=== PATIENT | male | born 1985 | race Hispanic/Latino ===

== ENCOUNTER 2022-02-09 18:37 | Emergency (ER) | payer SELFPAY ==
--- OUTSIDE RECORDS SUMMARY | 2022-02-09 18:40 | XMS REPORT | Continuity of Care Document ---
:[address] [facility] t Address [address] [place] [address] Care Team Providers Name Role Phone PCP, DOES NOT HAVE A Primary Care Physician Unavailable JEISON Attending Clinician Unavailable Jeison HUNT Attending Clinician Nuria Lindsay Attending Clinician Unavailable RAUL KITCHEN Attending Clinician Unavailable Juan Antonio SMITH Attending Clinician Physician, Primary or Family Admitting Clinician Unavailcalista MCHUGH Admitting Clinician Unavailable Payers Payer Name Policy Type Policy Number Effective Date Expiration Date S ource Problems Condition Condition Condition Status Onset Resolution Last Treating Co mments Source Name Details Category Date Date Treatment Clinician Date No known No known Disease NPI:1 83 active active [id number] problems problems Allergies, Adverse Reactions, Alerts Allergy Allergy Status Severity Reaction(s) Onset Inactive Treating Comm ents Source Name Type Date Date Clinician No Known DA Active U 2020-0 [facility] 00:[facility]: d 00 [facility] No Known DA Active U 2020-0 [facility] No Known DA Active U 2020-0 [facility] 3[facility] 00:[facility]: d 00 [facility] No Known DA Active U 2020-0 [facility] 3[facility]13 [place] 00:00: d 00 [facility] No Known DA Active U 2019-0 [facility] 2[facility]03 [facility] 00:[facility]: d 00 [facility] No Known DA Active U 2019-0 [facility]ie 2-03 [place] [facility] 00:00: d 00 [facility] No Known DA Active U 2016- [facility]ie 5-02 [place] [facility] 00:00: d 00 [facility] No Known DA Active U 2017-0 [facility]ie 5-02 [place] [facility] 00:00: d 00 [facility] No Known DA Active U 2017-0 [facility] 1-14 [place] [facility] 00:00: d 00 [facility] No Known DA Active U 2016-0 [facility]ie 1-14 [place] [facility] 00:00: d 00 [facility] NO KNOWN Drug Active NPI:183 ALLERGIE Class [id number] S Social History Social Habit Start Date Stop Date Quantity Comments Source Exposure to Not sure NPI:[id number] SARS-CoV-2 (event) Sex [birth year] At [birth year] NPI:[id number] 00:00:00 00:00:00 Smoking Status Start Date Stop Date Source Unknown if ever smoked NPI:[id number] Medications Ordered Filled Start Stop Current Ordering Indication Dosage Frequency Signature Comments Components Source Medication Medication Date Date Medication? Clinician (SIG) Name Name ketorolac 2020-10 30mg 30 mg, NPI:1 83 (TORADOL) 10-20 Slow IV [id number] 1 injection 21:30: 20:32 Push, 30 mg 00 :00 ONCE, 1 dose, On Wed08/20/21 at 1530, Routine
prepared foods service team member approving Restricted medication : KASSY MCHUGH diclofenac 2020-10 Yes [id number] 75mg Take 1 NPI:183 75 mg EC 1-17 tablet by [id number] 1 tablet 00:00: mouth 2 00 (two) times daily with meals. acetaminoph 2020-10 Yes [id number] 650mg Take 1 NPI:183 en (TYLENOL 1-17 tablet by [id number] ARTHRITIS 00:00: mouth PAIN) 650 00 every 8 mg CR (eight) tablet hours as needed for Pain. metaxalone 2020-10 Yes [id number] 800mg Take 1 NPI:183 (SKELAXIN) 10-20 tablet by [id number] 800 mg 00:00: mouth 3 tablet 00 (three) times daily. aspirin 325mg 325 mg, NPI:1 83 tablet 325 10-14 Oral, [id number] mg 18:30: 19:12 ONCE, 1 00 :00 dose, 10/14/20 at 1230, STAT No known No NPI:183 medications [id number] Vital Signs Vital Name Observation Time Observation Value Comments Source Systolic blood pressure 2021-08-20 22:48:53 136 mm[Hg] Diastolic blood 2021-08-20 22:48:53 74 mm[Hg] NPI:1 [id number] pressure Heart rate 2021-08-20 22:48:53 80 /min NPI:[id number] Body temperature 2021-08-20 22:48:53 36.94 Karolina Respiratory rate 2021-08-20 22:48:53 17 /min Oxygen saturation in 2021-08-20 22:48:53 100 /min Arterial blood by Pulse oximetry Body height 2021-08-20 19:43:57 177.8 cm NPI:183 [id number] Body weight 2021-08-20 19:43:57 89.359 kg NPI:183 [id number] BMI 2021-08-20 19:43:57 28.27 kg/m2 NPI:183 [id number] Systolic blood pressure 2020-10-14 19:14:31 117 mm[Hg] Diastolic blood 2020-10-14 19:14:31 60 mm[Hg] NPI:1 [id number] pressure Heart rate 2020-10-14 19:14:31 102 /min NPI:1831 [id number] Body temperature 2020-10-14 19:14:31 36.5 Karolina Respiratory rate 2020-10-14 19:14:31 17 /min Oxygen saturation in 2020-10-14 19:14:31 100 /min Arterial blood by Pulse oximetry Body weight 2020-10-14 17:20:00 104.327 kg NPI:1831 [id number] Procedures Procedure Date / Time Performed Performing Clinician Sourc e URINALYSIS 2021-08-20 20:42:00 Kassy Mchugh NPI:[id number] XR CHEST 2 VW 2021-08-20 20:35:49 Kassy Mchugh NPI:[id number] TROPONIN I 2021-08-20 20:35:00 Kassy Mchugh NPI:[id number] COMP. METABOLIC PANEL 2021-08-20 20:35:00 Kassy Mchugh NPI:1 [id number] ([id number]) CBC WITH DIFF 2021-08-20 20:35:00 Kassy Mchugh NPI:[id number] XR CHEST 1 VW 2020-10-14 18:45:09 J Carlos Romano NPI:[id number] TROPONIN I 2020-10-14 18:01:00 J Carlos Romano NPI:[id number] BASIC METABOLIC PANEL (NA, 2020-10-14 18:01:00 J Carlos Romano PI:[id number] K, CL, CO2, GLUCOSE, BUN, CREATININE, CA) GALV/CLC ONLY - URINE DRUG 2020-10-14 18:01:00 J Carlos Romano PI:[id number] (IMMUNOASSAY) - 4 ER PANEL CBC WITH DIFF 2020-10-14 18:01:00 J Carlos Romano NPI:[id number] Encounters Start End Encounter Admission Attending Care Care Encounter Source Date/Time Date/Time Type Type Clinicians Facility Department ID 2021-11-04 Outpatient IBNS IBNS [id number] 14:25:01 [id number] Aristides 2020-12-27 Inpatient [facility]NA [id number] [facility] 18:55:00 [id number] [facility] 2020-01-29 Inpatient [facility] [id number] [facility] 14:54:00 [id number] [facility] 2020-01-01 Inpatient [facility] [id number] [facility] 19:07:00 [facility] 2019-12-15 Inpatient [facility] [id number] [facility] 09:05:00 [id number] [facility] 2019-11-06 Inpatient [facility] [id number] [facility] 19:20:00 [facility] 2021-08-20 2021-08-20 Emergency X JEISON, [facility] ERT [id number] NPI:183 13:54:00 17:08:00 KASSY [id number] 1 2021-08-20 [facility]08-[id number] NPI:183 13:54:00 17:08:00 [facility] [id number] [place] 4.2.7.2.[address] [facility] [phone] [address] ([facility]) 2021-06-04 2021-06-04 Emergency EM Lindsay, [facility] [id number] [facility] 21:27:00 22:14:00 Yvon [id number] [facility] 2021-02-10 2021-02-10 Emergency E KITCHEN, [facility] MHSW [id number] MHSW 00:55:00 03:24:00 ALETHEA 2020-10-14 2020-10-14 Emergency Romano, [facility] [id number] NPI:183 11:08:00 13:45:00 [facility] [id number] Clear 4.2.7.2.686 [place] [phone] [place] [address] ([facility]) 2020-10-14 2020-10-14 Emergency X [facility] ERT [id number] NPI:183 11:08:00 11:08:00 [id number] 1 Results Test Description Test Time Test Comments Results Result Comments Source TROPONIN I 2021-08-20 21:05:54 Test Item Value Reference Range Interpretation Comme nts TROPONIN I (test code = 0.004 ng/mL See_Comment [Au tomated message] The 4602318790) system which ge nerated this result tra nsmitted reference range : <=0.034. The reference r cooper was not used to int erpret this result as normal/abnormal . KEN (test code = KEN) Reference (Normal) Range (defined by the 99th percentile reference limit): <= 0.034 ng/mL Note: Cardiac troponin begins to rise 3-4 hours after the onset of ischemia. Repeat in 4-6 hours if the sample was drawn within 3-4 hours of the onset of the symptom and found normal. Diagnosis of myocardial injury is made with acute changes in cTn concentrations with at least one serial sample above the 99th percentile upper reference limit (URL), taken together with the patient's clinical presentation. Biotin has been reported to cause a negative bias, interpret results relative to patient's use of biotin. Lab Interpretation Normal (test code = 40381-3) NPI:[id number]. METABOLIC PANEL (83358)2021-08-20 20:54:32 Test Item Value Reference Range Interpretation Comments NA (test code = 138 mmol/L 135-145 8299501433) K (test code = 4.3 mmol/L 3.5-5.0 9256370168) CL (test code = 103 mmol/L 98-108 0324846825) CO2 TOTAL (test code = 27 mmol/L 23-31 7873460535) AGAP (test code = 2-16 4760883694) BUN (test code = 10 mg/dL 7-23 1531729425) GLUCOSE (test code = 111 mg/dL 70-110 H 9856768144) CREATININE (test code = 0.75 mg/dL 0.60-1.25 1788434710) TOTAL BILI (test code = 1.1 mg/dL 0.1-1.2 1417999403) CALCIUM (test code = 9.5 mg/dL 8.6-10.6 4307708829) T PROTEIN (test code = 7.6 g/dL 6.3-8.2 6576348260) ALBUMIN (test code = 4.6 g/dL 3.5-5.0 8380065233) ALK PHOS (test code = 106 U/L 34-122 7268575725) ALTv (test code = 41 U/L 5-50 1742-6) AST(SGOT) (test code = 37 U/L 13-40 7000665517) eGFR (test code = mL/min/1.73m2 2692829361) KEN (test code = KEN) Association of Glomerular Filtration Rate (GFR) and Staging of Kidney Disease* + --+ --+ ------+| GFR (mL/min/1.73 m2) ?| With Kidney Damage ?| ?Without Kidney Damage+ --------+ --------+ +| ?>90 ?| ?Stage one ?| ? Normal ?+ ---+ ---+ -------+| ?60-89 ?| ?Stage two ?| ? Decreased GFR ? + --+ --+ ------+| ?30-59 ?| ?Stage three ?| ? Stage three ? + --+ --+ ------+| ?15-29 ?| ?Stage four ? | ? Stage four ?+ ---+ ---+ -------+| ?<15 (or dialysis) ? ?| ?Stage five ? | ? Stage five ?+ ---+ ---+ -------+ *Each stage assumes the associated GFR level has been in effect for at least three months. ?Stages 1 to 5, with or without kidney disease, indicate chronic kidney disease. Notes: Determination of stages one and two (with eGFR >59mL/min/1.73 m2) requires estimation of kidney damage for at least three months as defined by structural or functional abnormalities of the kidney, manifested by either:Pathological abnormalities or Markers of kidney damage (including abnormalities in the composition of the blood or urine or abnormalities in imaging tests). Lab Interpretation Abnormal (test code = 71283-8) NPI:[id number] WITH [id number] 20:41:06 Test Item Value Reference Range Interpretation Comments WBC (test code = See_Comment [Automated 4032-2) message] The sy stem which generated this result transmitted reference range : 4.20 - 10.70 10*3/?L. The reference range was not used to interpret this result as normal/abnormal . RBC (test code = See_Comment H [Automated 035-8) message] The sy stem which generated this result transmitted reference range : 4.26 - 5.52 10*6/?L. The reference range was not used to interpret this result as normal/abnormal . HGB (test code = 16.0 g/dL 12.2-16.4 718-7) HCT (test code = 48.0 % 38.4-49.3 4544-3) MCV (test code = 85.4 fL 81.7-95.6 787-2) MCH (test code = 28.5 pg 26.1-32.7 785-6) MCHC (test code = 33.3 g/dL 31.2-35.0 786-4) RDW-SD (test code = 41.3 fL 38.5-51.6 68204-7) RDW-CV (test code = 13.3 % 12.1-15.4 788-0) PLT (test code = See_Comment [Automated 777-3) message] The sy stem which generated this result transmitted reference range : 150 - 328 10*3/ ?L. The reference r cooper was not used to interpret this result as normal/abnormal . MPV (test code = 9.0 fL 9.8-13.0 L 47589-6) NRBC/100 WBC (test See_Comment [Automat ed code = 6313540004) message] The system which generated this result transmitted reference range : 0.0 - 10.0 /100 WBCs. The refer ence range was not u sed to interpret th is result as normal/abnormal . NRBC x10^3 (test code <0.01 See_Comment [Auto mated = 3455119913) message] The s ystem which generated this result transmitted reference range : 10*3/?L. The reference range was not used to interpret this result as normal/abnormal . GRAN MAT (NEUT) % 77.0 % (test code = 770-8) IMM GRAN % (test code 0.70 % = 9815731800) LYMPH % (test code = 16.3 % 736-9) MONO % (test code = 5.2 % 5905-5) EOS % (test code = 0.2 % 713-8) BASO % (test code = 0.6 % 706-2) GRAN MAT x10^3(ANC) 7.36 10*3/uL 1.99-6.95 H (test code = 5391714940) IMM GRAN x10^3 (test 0.07 10*3/uL 0.00-0.06 H code = 0998685652) LYMPH x10^3 (test code 1.56 10*3/uL 1.09-3.23 = 731-0) MONO x10^3 (test code 0.50 10*3/uL 0.36-1.02 = 742-7) EOS x10^3 (test code = <0.03 0.06-0.53 L 711-2) BASO x10^3 (test code 0.06 10*3/uL 0.01-0.09 = 704-7) Lab Interpretation Abnormal (test code = 44243-6) NPI:[id number] BEDSIDE [id number] 19:53:00 Test Item Value Reference Range Interpretation Comments GLUCOSE BEDSIDE TESTING (test code = 99 mg/dL 70-110 N GLUBED) Chest 1 [id number] 19:02:30CHEST PORTABLE ONE VIEW HISTORY:Shortness of breath TECHNIQUE: Frontal, portable projection of the chest is obtained. FINDINGS: The lungs are clear. The heart size and mediastinal silhouetteare normal.No pleural effusion or pneumothorax is seen. CONCLUSIONS: No acute cardiopulmonary disease. [facility], Radiant Results Inft User - 10/14/2020 1:03 PM CSTCHEST PORTABLE ONE VIEWHISTORY:Shortness of breathTECHNIQUE: Frontal, portable projection of the chest is obtained.FINDINGS: The lungs are clear. The heart size and mediastinal silhouetteare normal. No pleural effusion or pneumothorax is seen.CONCLUSIONS: No acute cardiopulmonary disease. NPI:[id number] [id number] 18:42:00 Test Item Value Reference Range Interpretation Comments TROPONIN I (test 0.003 ng/mL See_Comment [Automated code = 5554809128) message] The system which generated this result transmitted reference range : <=0.034. The reference range was not used to interpret this result as normal/abnormal . KEN (test code = Equal or Less than KEN) 0.034 ng/ml---Normal ?Note: Cardiac troponin begins to rise 3-4 hours after the onset of ischemia. Repeat in 4-6 hours if the sample was drawn within 3-4 hours of the onset of the symptom and found normal. Between 0.035 and 0.120 ng/mL--- Borderline. Questionable myocardial injury or necrosis ? ?Note: Serial measurement may be necessary to confirm or exclude the diagnosis of myocardial injury or necrosis; Clinical correlation (symptoms, EKGs, imaging studies, and others) required; Repeat in 4-6 hours if clinically indicated. ? Equal or Higher than 0.121 ng/mL---Abnormal. Myocardial Injury or Necrosis Likely ? Biotin has been reported to cause a negative bias, interpret results relative to patient's use of biotin. ? Lab Interpretation Normal (test code = 93809-0) NPI:[id number] SCREEN ER (URINE)2020-10-14 18:38:00 Test Item Value Reference Range Interpretation Comments AMPHET (test code = Negative Negative 9891562447) Cocaine Metabolite (test Presumptive Positive Negative A code = 9970135476) OPIATES (test code = Negative Negative 1944678144) THC (test code = Negative Negative 8245599485) KEN (test code = KEN) Urine Drug Cutoff Ranges Amphetamine: ? 1,000 ng/mLCocaine: ? 150 ng/mLOpiates: ? 300 ng/mLCannabinoids: ?50 ng/mL The results are to be used only for medical (i.e., treatment) purposes. Unconfirmed screening results must not be used for non-medical purposes (e.g., employment testing, legal testing). Lab Interpretation (test Abnormal code = 99945-0) NPI:[id number] Metabolic Panel (NA, K, CL, CO2, GLUCOSE, BUN, CREATININE, CA)2020-10-14 18:31:00 Test Item Value Reference Range Interpretation Comments NA (test code = 140 mmol/L 135-145 5538592678) K (test code = 4.7 mmol/L 3.5-5 3916609694) CL (test code = 106 mmol/L 98-108 7800757823) CO2 TOTAL (test code = 23 mmol/L 23-31 7030047673) AGAP (test code = 2-16 2600873404) BUN (test code = 10 mg/dL 7-23 6754012845) GLUCOSE (test code = 117 mg/dL 70-110 H 3036873996) CREATININE (test code = 0.78 mg/dL 0.6-1.25 7875357128) CALCIUM (test code = 9.8 mg/dL 8.6-10.6 9796509580) eGFR Calculation mL/min/1.73m2 (Non-) (test code = 0225599432) eGFR Calculation mL/min/1.73m2 () (test code = 8780670113) KEN (test code = KEN) Association of Glomerular Filtration Rate (GFR) and Staging of Kidney Disease* + --+ --+ ------+| GFR (mL/min/1.73 m2) ?| With Kidney Damage ?| ?Without Kidney Damage+ --------+ --------+ +| ?>90 ?| ?Stage one ?| ? Normal ?+ ---+ ---+ -------+| ?60-89 ?| ?Stage two ?| ? Decreased GFR ? + --+ --+ ------+| ?30-59 ?| ?Stage three ?| ? Stage three ? + --+ --+ ------+| ?15-29 ?| ?Stage four ? | ? Stage four ?+ ---+ ---+ -------+| ?<15 (or dialysis) ? ?| ?Stage five ? | ? Stage five ?+ ---+ ---+ -------+ *Each stage assumes the associated GFR level has been in effect for at least three months. ?Stages 1 to 5, with or without kidney disease, indicate chronic kidney disease. Notes: Determination of stages one and two (with eGFR >59mL/min/1.73 m2) requires estimation of kidney damage for at least three months as defined by structural or functional abnormalities of the kidney, manifested by either:Pathological abnormalities or Markers of kidney damage (including abnormalities in the composition of the blood or urine or abnormalities in imaging tests). Lab Interpretation Abnormal (test code = 50452-7) NPI:[id number] with [id number] 18:08:00 Test Item Value Reference Range Interpretation Comments WBC (test code = See_Comment [Automated 4690-2) message] The sy stem which generated this result transmitted reference range : 4.20 - 10.70 10*3/?L. The reference range was not used to interpret this result as normal/abnormal . RBC (test code = See_Comment H [Automated 789-8) message] The sy stem which generated this result transmitted reference range : 4.26 - 5.52 10*6/?L. The reference range was not used to interpret this result as normal/abnormal . HGB (test code = 16.6 g/dL 12.2-16.4 H 718-7) HCT (test code = 49.2 % 38.4-49.3 4544-3) MCV (test code = 87.9 fL 81.7-95.6 787-2) MCH (test code = 29.6 pg 26.1-32.7 785-6) MCHC (test code = 33.7 g/dL 31.2-35 786-4) RDW-SD (test code = 43.8 fL 38.5-51.6 57738-0) RDW-CV (test code = 13.6 % 12.1-15.4 788-0) PLT (test code = See_Comment [Automated 777-3) message] The sy stem which generated this result transmitted reference range : 150 - 328 10*3/ ?L. The reference r cooper was not used to interpret this result as normal/abnormal . MPV (test code = 9.3 fL 9.8-13 L 65404-8) NRBC/100 WBC (test See_Comment [Automat ed code = 4257080797) message] The system which generated this result transmitted reference range : 0.0 - 10.0 /100 WBCs. The refer ence range was not u sed to interpret th is result as normal/abnormal . NRBC x10^3 (test code <0.01 See_Comment [Auto mated = 0657503555) message] The s ystem which generated this result transmitted reference range : 10*3/?L. The reference range was not used to interpret this result as normal/abnormal . GRAN MAT (NEUT) % 75.1 % (test code = 770-8) IMM GRAN % (test code 1.40 % = 9830660940) LYMPH % (test code = 15.4 % 736-9) MONO % (test code = 6.6 % 5905-5) EOS % (test code = 0.7 % 713-8) BASO % (test code = 0.8 % 706-2) GRAN MAT x10^3(ANC) 5.32 10*3/uL 1.99-6.95 (test code = 5044059822) IMM GRAN x10^3 (test 0.10 10*3/uL 0-0.06 H code = 9978251030) LYMPH x10^3 (test code 1.09 10*3/uL 1.09-3.23 = 731-0) MONO x10^3 (test code 0.47 10*3/uL 0.36-1.02 = 742-7) EOS x10^3 (test code = 0.05 10*3/uL 0.06-0.53 L 711-2) BASO x10^3 (test code 0.06 10*3/uL 0.01-0.09 = 704-7) Lab Interpretation Abnormal (test code = 52922-2) - CTA CHEST FOR [id number] 16:36:00 Name: ИВАН DEVLIN [facility] : 1985 Age/S: 34 / M [address] [place] Unit #: [id number] Loc: [place] [address] Phys: Yvon Lindsay MD Acct: [id number] Dis Date: Status: REG ER PHONE #: [phone] Exam Date: 01/29/2020 7476 FAX #: Reason: SOB/palp itations elevated D-Dimer EXAMS: CPT: [id number] [place] [address] Site ID: [id number] CT angiogram of the chest with pulmonary embolism protocol CLINICAL HISTORY: Shortness of breath/palpitations, elevated d-dimer COMPARISON STUDY: Chest x- ray of the same day TECHNIQUE: CT angiogram of the chest with IV contrast performed according to department pulmonary embolus protocol. Radiologist performed post-acquisition 3D processing was done at the workstation and reviewed. CT dose lowering technique utilized, with adjustment of MA/kV according to patient size and automated exposure control. FINDINGS: There is no evidence of pulmonary embolism. The thyroid gland and thoracic inlet are normal. The mediastinum is unremarkable, with no suspicious mass. The heart size is normal. The thoracic aorta and great vessels arenormal in caliber. No pleural or pericardial effusion. No axillary, mediastinal or hilar lymphadenopathy. The tracheobronchial tree is clear. No pulmonary nodules, mass or consolidation. Bone windows demonstrate no evidence of fracture or malalignment. Limited images of the upper abdomen appear normal. IMPRE SSION: No evidence of acute pulmonary embolus or acute abnormality within the chest. PAGE 1 Signed Report (CONTINUED) Name: ИВАН DEVLINland : 1985 Age/S: 34 / M [address] [place] Unit #: [id number] Loc: [place] [address] Phys: Yvon Lindsay MD Acct: [id number] Dis Date: Status: REG ER PHONE #: [phone] Exam Date: 01/29/2020 1633 FAX #: Reason: SOB/palpitations elevated D-Dimer EXAMS: CPT: [id number] [place] [address] <Continued> at 1636 Reported and signed by: Bucky Kitchen M.D. CC: Yvon Lindsay MD; Amrita Parker NP Technologist:RT Chalo(R)(CT) CTDI: DLP: Trnscb Date/Time: 01/29/2020 (163) [email or web address] Orig Print D/T: S: 01/29/2020 (1639) PAGE 2 Signed ReportCOMPREHENSIVE METABOLIC [id number] 15:48:00 Test Item Value Reference Range Interpretation Comments SODIUM (test code = NA) 138 mmol/L 134-147 N POTASSIUM (test code = 3.5 mmol/L 3.4-5.0 N K) CHLORIDE (test code = 104 mmol/L 100-108 N CL) CARBON DIOXIDE (test 23 mmol/L 21-32 N code = CO2) ANION GAP (test code = 11.0 GAP calc 4.0-15.0 N GAP) GLUCOSE (test code = 95 MG/DL 70-110 N GLU) BLOOD UREA NITROGEN 8 MG/DL 7-18 N (test code = BUN) GLOMERULAR FILTRATION >=60 max estimate >60 RATE (test code = GFR) estGFR CREATININE (test code = 0.8 MG/DL 0.8-1.3 N CREAT) TOTAL PROTEIN (test code 7.8 G/DL 6.4-8.2 N = PROT) ALBUMIN (test code = 4.2 G/DL 3.4-5.0 N ALB) GLOBULIN (test code = 3.6 GM/dL GLOB) ALBUMIN/GLOBULIN RATIO 1.2 RATIO 1.2-2.2 N (test code = A/G) CALCIUM (test code = CA) 8.3 MG/DL 8.5-10.1 L BILIRUBIN TOTAL (test 0.80 MG/DL 0.2-1.2 N code = BILT) SGOT/AST (test code = 43 Unit/L 15-37 H AST) SGPT/ALT (test code = 60 Unit/L 12-78 N ALT) ALKALINE PHOSPHATASE 146 Unit/L 50-136 H TOTAL (test code = ALKP) Completed by Nursing: NOTHYROID STIMULATING [id number] 15:48:00 Test Item Value Reference Range Interpretation Comments THYROID STIMULATING HORMONE 0.493 mcIU/ML 0.340-4.820 N (test code = TSH) Completed by Nursing: [id number] 15:48:00 Test Item Value Reference Range Interpretation Comments TROPONIN-I (test < 0.015 NG/ML 0.000-0.045 N Negative: </= 0.045 code = TROPI) Positive: >/= 0.046 Correlation wit h serial results, other cardiac markers, and cl inical findings is nec essary to determine the c linical significance of this result. Quantit ative results using d ifferent methodologies s hould not be compared to one another as nume rical results may delta yby method. Completed by Nursing: NOCREATINE KINASE (CK)2020-01-29 15:48:00 Test Item Value Reference Range Interpretation Comments CREATINE KINASE (CK) (test code = 478 Unit/L 26-192 H CK) NT PRO-BRAIN NATRIURETIC [id number] 15:48:00 Test Item Value Reference Range Interpretation Comments NT PRO-BRAIN NATRIURETIC PEPTI < 5 PG/ML 0-100 N (test code = PROBNP) [id number] 15:47:00 Test Item Value Reference Range Interpretation Comments D-DIMER (test code = DDIMER) 516 ng/mLFEU 215-500 HH - XR CHEST 2 [id number] 15:43:00 Name: ИВАН DEVLIN [facility] : 1985 Age/S: 34 / M [address] Unit #: [id number] Loc: [place] [address] Phys: Yvon Lindsay MD Acct: [id number] Dis Date: Status: REG ER PHONE #: [phone] Exam Date: 01/29/2020 1530 FAX #: Reason: SOB, palpitation EXAMS: CPT: [id number] XR CHEST 2 V 93021 Fluoro Time: DAP (Gy m2): Air Kerma (mGy): EXAMINATION: - XR CHEST 2 V. LOCATION: S17. HISTORY: SOB, palpitation. COMPARISON: None. FINDINGS: Cardiac silhouette/Mediastinal contour: Within normal limits. L ungs: No focal consolidation. No pleural effusion. Low lung volumes. Osseous Structures: No acute osseous abnormalities. IMPRESSION: No focal consolidation. at 1543 Reported and signed by: Miko Knight M.D. CC: Yvon Lindsay MD; Amrita Parker NP PAGE 1 Signed Report Name: ИВАН DEVLIN Coram : 1985 Age/S: 34 / M [address] Unit #: [id number] Loc: [place] [address] Phys: Yvon Lindsay MD Acct: [id number] Dis Date: Status: REG ER PHONE #: [phone] Exam Date: 01/29/2020 153 FAX #: Reason: SOB, palpitation EXAMS: CPT: [id number] XR CHEST 2 V 39755 Fluoro Time: DAP (Gy m2): Air Kerma (mGy): <Continued> Technologist: Patrica Deng RT(R)(CT) Trnscb Date/Time: 01/29/2020 (1543) [email or web address] Orig Print D/T: S: 01/29/2020 (7580) PAGE 2 Signed ReportCBC W/AUTO [id number] 15:29:00 Test Item Value Reference Range Interpretation Comments WHITE BLOOD CELL (test code = 7.9 K/mm3 3.5-11.0 N WBC) RED BLOOD CELL (test code = RBC) 5.55 M/mm3 4.70-6.10 N HEMOGLOBIN (test code = HGB) 16.0 G/DL 12.3-15.9 H HEMATOCRIT (test code = HCT) 48.4 % 35.8-46.7 H MEAN CELL VOLUME (test code = 87.2 Fl 86.3-98.9 N MCV) MEAN CELL HGB (test code = MCH) 28.8 pg 28.9-34.4 L MEAN CELL HGB CONCETRATION (test 33.1 G/DL 32.1-34.5 N code = MCHC) RED CELL DISTRIBUTION WIDTH (test 14.5 SD 11.5-14.5 N code = RDW) PLATELET COUNT (test code = PLT) 286.0 K/mm3 150-450 N MEAN PLATELET VOLUME (test code = 8.60 fL 7.0-9.6 N MPV) NEUTROPHIL % (test code = NT%) 69.6 % 40-76 N LYMPHOCYTE % (test code = LY%) 23.6 % 20.5-51.1 N MONOCYTE % (test code = MO%) 6.2 % 1.7-9.3 N EOSINOPHIL % (test code = EO%) 0.3 % 0.0-6.0 N BASOPHIL % (test code = BA%) 0.3 % 0.0-2.0 N NEUTROPHIL # (test code = NT#) 5.53 K/mm3 1.8-7.6 N LYMPHOCYTE # (test code = LY#) 1.9 K/mm3 0.6-3.0 N MONOCYTE # (test code = MO#) 0.5 K/mm3 0.2-1.5 N EOSINOPHIL # (test code = EO#) 0.0 K/mm3 0.0-0.4 N BASOPHIL # (test code = BA#) 0.0 K/mm3 0.0-0.2 N MANUAL DIFF REQUIRED (test code = NO DIFF/SCN CRITERIA MDIFF) [id number] 20:57:00 Test Item Value Reference Range Interpretation Comments D-DIMER (test code = DDIMER) 215 ng/mLFEU 215-500 N [id number] 20:51:00 Test Item Value Reference Range Interpretation Comments TROPONIN-I (test < 0.015 NG/ML 0.000-0.045 N Negative: </= 0.045 code = TROPI) Positive: >/= 0.046 Correlation wit h serial results, other cardiac markers, and cl inical findings is nec essary to determine the c linical significance of this result. Quantit ative results using d ifferent methodologies s hould not be compared to one another as nume rical results may delta yby method. Completed by Nursing: NOBASIC METABOLIC [id number] 20:47:00 Test Item Value Reference Range Interpretation Comments SODIUM (test code = NA) 142 mmol/L 134-147 N POTASSIUM (test code = 3.5 mmol/L 3.4-5.0 N K) CHLORIDE (test code = 110 mmol/L 100-108 H CL) CARBON DIOXIDE (test 23 mmol/L 21-32 N code = CO2) ANION GAP (test code = 9.0 GAP calc 4.0-15.0 N GAP) GLUCOSE (test code = 113 MG/DL 70-110 H GLU) BLOOD UREA NITROGEN 7 MG/DL 7-18 N (test code = BUN) GLOMERULAR FILTRATION >=60 max estimate >60 RATE (test code = GFR) estGFR CREATININE (test code = 0.8 MG/DL 0.8-1.3 N CREAT) CALCIUM (test code = CA) 8.6 MG/DL 8.5-10.1 N CBC W/O [id number] 20:46:00 Test Item Value Reference Range Interpretation Comments WHITE BLOOD CELL (test code = 6.7 K/mm3 3.5-11.0 N WBC) RED BLOOD CELL (test code = RBC) 5.41 M/mm3 4.70-6.10 N HEMOGLOBIN (test code = HGB) 15.6 G/DL 12.3-15.9 N HEMATOCRIT (test code = HCT) 47.3 % 35.8-46.7 H MEAN CELL VOLUME (test code = 87.4 Fl 86.3-98.9 N MCV) MEAN CELL HGB (test code = MCH) 28.8 pg 28.9-34.4 L MEAN CELL HGB CONCETRATION (test 33.0 G/DL 32.1-34.5 N code = MCHC) RED CELL DISTRIBUTION WIDTH (test 14.2 SD 11.5-14.5 N code = RDW) PLATELET COUNT (test code = PLT) 296.0 K/mm3 150-450 N MEAN PLATELET VOLUME (test code = 8.70 fL 7.0-9.6 N MPV) - XR CHEST 1 [id number] 20:41:00 Name: ИВАН TAMEZ [facility] : 1985 Age/S: 34 / M [address] Unit #: [id number] Loc: [place] [address] Phys: Garima Kumar MD Acct: [id number] Dis Date: Status: REG ER PHONE #: [phone] Exam Date: 01/01/20202034 FAX #: Reason: SOB EXAMS: CPT: [id number] XR CHEST 1 V 53189 Fluoro Time: DAP (Gy m2): Air Kerma (mGy): Location code: H 5 Chest 1 view Indication: SOB. Comparison: None Findings: The heart and mediastinum are not remarkable. Costophrenic angles are clear. Lungs are clear. Bone is unremarkable for age. Impression: 1. No radiographic evidence of acute cardiopulmonary disease. at 2041 Reported and signed by: Austin Nickerson M.D. CC: Garima Kumar MD PAGE 1 Signed Report [facility] 1985 Age/S: 34 / M [address] Unit #: [id number] Loc: [place] [address] Phys: Garima Kumar MD Acct: [id number] Dis Date: Status: REG ER PHONE #: [phone] Exam Date: 01/01/20202034 FAX #: Reason: SOB EXAMS: CPT: [id number] XR CHEST 1 V 90057 Fluoro Time: DAP (Gy m2): Air Kerma (mGy): <Continued> Technologist: Patrica Deng, RT(R)(CT) Trnscb Date/Time: 01/01/2020 (2040) [email or web address] Orig Print D/T: S: 01/01/2020 (2043) PAGE 2 Signed Report- XR CHEST 2 [id number] 10:11:00 Name: ИВАН THAYER Coram : 1985 Age/S: 34 / M [address] Unit #: [id number] Loc: [place] [address] Phys: Marilu Houser MD Acct: [id number] Dis Date: Status: REG ER PHONE #: [phone] Exam Date: 12/15/2019 1007 FAX #: Reason: SOB EXAMS: CPT: [id number] XR CHEST 2 V 03618 Fluoro Time: DAP (Gy m2): Air Kerma (mGy): Dictation location: U19. CHEST,FRONTAL AND LATERAL VIEWS HISTORY: SOB COMPARISON: None. FINDINGS: Thelungs are clear without consolidation. No pleural effusion or pneumothorax. The heart size is normal. The bones are unremarkable. IMPRESSION: No evidence of acute cardiopulmonary disease. at 1011 Reported and signed by: Rebecca Glass M.D. CC: Marilu Houser MD PAGE1 Signed Report Name: [facility] : 1985 Age/S: 34 / M [address] Unit #: [id number] Loc: [place] [address] Phys: Marilu Ratliff MD Acct: [id number] Dis Date: Status: REG ER PHONE #: [phone] Exam Date: 12/15/2019 1007 FAX #: Reason: SOB EXAMS: CPT: [id number] XR CHEST 2 V 71087 Fluoro Time: DAP (Gy m2): Air Kerma (mGy): <Continued> Technologist: Clarissa Egan, RT(R) Trnscb Date/Time: 12/15/2019 (101) [email or web address] Orig Print D/T: S: 12/15/2019 (1014) PAGE 2 Signed ReportTROPONIN I [id number] 23:32:00 Test Item Value Reference Range Interpretation Comments TROPONIN I RAPID 0.00 ng/mL 0.00-0.08 N - The use o f serial (test code = sampling and te sting TROPIRAP) protocol is a recommended pra ctice- An elevated tro ponin level alone is often not sufficient for diagnosis of my ocardial infarction. CBC W/AUTO [id number] 20:38:00 Test Item Value Reference Range Interpretation Comments WHITE BLOOD CELL (test 7.9 K/mm3 3.5-11.0 N code = WBC) RED BLOOD CELL (test 5.80 M/mm3 4.70-6.10 N code = RBC) HEMOGLOBIN (test code 17.4 G/DL 12.3-15.9 H = HGB) HEMATOCRIT (test code 50.6 % 35.8-46.7 H = HCT) MEAN CELL VOLUME (test 87.2 Fl 86.3-98.9 N code = MCV) MEAN CELL HGB (test 30.0 pg 28.9-34.4 N code = MCH) MEAN CELL HGB 34.4 G/DL 32.1-34.5 N CONCETRATION (test code = MCHC) RED CELL DISTRIBUTION 14.1 SD 11.5-14.5 N WIDTH (test code = RDW) PLATELET COUNT (test 282.0 K/mm3 150-450 N code = PLT) MEAN PLATELET VOLUME 8.70 fL 7.0-9.6 N (test code = MPV) NEUTROPHIL % (test 69.7 % 40-76 N code = NT%) LYMPHOCYTE % (test 22.4 % 20.5-51.1 N code = LY%) MONOCYTE % (test code 7.3 % 1.7-9.3 N = MO%) EOSINOPHIL % (test 0.3 % 0.0-6.0 N code = EO%) BASOPHIL % (test code 0.3 % 0.0-2.0 N = BA%) NEUTROPHIL # (test 5.51 K/mm3 1.8-7.6 N code = NT#) LYMPHOCYTE # (test 1.8 K/mm3 0.6-3.0 N code = LY#) MONOCYTE # (test code 0.6 K/mm3 0.2-1.5 N = MO#) EOSINOPHIL # (test 0.0 K/mm3 0.0-0.4 N code = EO#) BASOPHIL # (test code 0.0 K/mm3 0.0-0.2 N = BA#) MANUAL DIFF REQUIRED NO DIFF/SCN CRITERIA SLIDE Nuria WHITE (test code = MDIFF) CONSISTA NT WITH AUTO DIFFERENTIAL. BASIC METABOLIC [id number] 19:57:00 Test Item Value Reference Range Interpretation Comments SODIUM (test code = NA) 139 mmol/L 134-147 N POTASSIUM (test code = 3.7 mmol/L 3.4-5.0 N K) CHLORIDE (test code = 106 mmol/L 100-108 N CL) CARBON DIOXIDE (test 25 mmol/L 21-32 N code = CO2) ANION GAP (test code = 8.0 GAP calc 4.0-15.0 N GAP) GLUCOSE (test code = 108 MG/DL 70-110 N GLU) BLOOD UREA NITROGEN 5 MG/DL 7-18 L (test code = BUN) GLOMERULAR FILTRATION >=60 max estimate >60 RATE (test code = GFR) estGFR CREATININE (test code = 0.8 MG/DL 0.8-1.3 N CREAT) CALCIUM (test code = CA) 9.2 MG/DL 8.5-10.1 N Completed by Nursing: NONT PRO-BRAIN NATRIURETIC [id number] 19:57:00 Test Item Value Reference Range Interpretation Comments NT PRO-BRAIN NATRIURETIC PEPTI (test 6 PG/ML 0-100 N code = PROBNP) Completed by Nursing: [id number] 19:57:00 Test Item Value Reference Range Interpretation Comments TROPONIN-I (test < 0.015 NG/ML 0.000-0.045 N Negative: </= 0.045 code = TROPI) Positive: >/= 0.046 Correlation wit h serial results, other cardiac markers, and cl inical findings is nec essary to determine the c linical significance of this result. Quantit ative results using d ifferent methodologies s hould not be compared to one another as nume rical results may delta yby method. Completed by Nursing: NOCBC W/AUTO [id number] 19:43:00 Test Item Value Reference Range Interpretation Comments WHITE BLOOD CELL (test code = 7.9 K/mm3 3.5-11.0 N WBC) RED BLOOD CELL (test code = RBC) 5.80 M/mm3 4.70-6.10 N HEMOGLOBIN (test code = HGB) 17.4 G/DL 12.3-15.9 H HEMATOCRIT (test code = HCT) 50.6 % 35.8-46.7 H MEAN CELL VOLUME (test code = 87.2 Fl 86.3-98.9 N MCV) MEAN CELL HGB (test code = MCH) 30.0 pg 28.9-34.4 N MEAN CELL HGB CONCETRATION (test 34.4 G/DL 32.1-34.5 N code = MCHC) RED CELL DISTRIBUTION WIDTH (test 14.1 SD 11.5-14.5 N code = RDW) PLATELET COUNT (test code = PLT) 282.0 K/mm3 150-450 N MEAN PLATELET VOLUME (test code = 8.70 fL 7.0-9.6 N MPV) NEUTROPHIL % (test code = NT%) % 40-76 N LYMPHOCYTE % (test code = LY%) % 20.5-51.1 N MONOCYTE % (test code = MO%) % 1.7-9.3 N EOSINOPHIL % (test code = EO%) % 0.0-6.0 N BASOPHIL % (test code = BA%) % 0.0-2.0 N NEUTROPHIL # (test code = NT#) K/mm3 1.8-7.6 N LYMPHOCYTE # (test code = LY#) K/mm3 0.6-3.0 N MONOCYTE # (test code = MO#) K/mm3 0.2-1.5 N EOSINOPHIL # (test code = EO#) K/mm3 0.0-0.4 N BASOPHIL # (test code = BA#) K/mm3 0.0-0.2 N MANUAL DIFF REQUIRED (test code = DIFF/SCN CRITERIA MDIFF)"
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
--- NOTE | 2022-02-09 19:02 | ER ---
Nurse's Notes [facility] Name: Arthur Awan Age: 36 yrs Sex: Male : 1985 Arrival Date: 02/09/2022 Time: 18:39 Bed 26 Private MD: Diagnosis: Laceration with foreign body of right hand, initial encounter Presentation: 02/09 18:48 Chief complaint: Patient states: cut right pinky on some metal at work. Coronavirus iw screen: At this time, the client does not indicate any symptoms associated with coronavirus-19. Ebola Screen: Patient negative for fever greater than or equal to 101.5 degrees Fahrenheit, and additional compatible Ebola Virus Disease symptoms Patient denies exposure to infectious person. Patient denies travel to an Ebola-affected area in the 21 days before illness onset. No symptoms or risks identified at this time. Complicating Factors: There are no complicating factors for this patient. Initial Sepsis Screen: Does the patient meet any 2 criteria? No. Patient's initial sepsis screen is negative. Does the patient have a suspected source of infection? No. Patient's initial sepsis screen is negative. Risk Assessment: Do you want to hurt yourself or someone else? Patient reports no desire to harm self or others. Onset of symptoms was February 09, 2022. 18:48 Method Of Arrival: Ambulatory iw 18:48 Acuity: AZEB 4 iw Historical: - Allergies: 18:48 No Known Allergies; iw - Home Meds: 18:48 None [Active]; iw - PMHx: 18:48 None; iw - PSHx: 18:48 None; iw - Immunization history:: Last tetanus immunization: unknown. - Social history:: Smoking status: . Screenin:04 Abuse screen: Denies threats or abuse. Nutritional screening: No deficits noted. ag7 Tuberculosis screening: No symptoms or risk factors identified. Fall Risk No fall in past 12 months (0 pts). No secondary diagnosis (0 pts). No IV (0 pts). Ambulatory Aid- None/Bed Rest/Nurse Assist (0 pts). Gait- Normal/Bed Rest/Wheelchair (0 pts) Mental Status- Oriented to own ability (0 pts). Total Becerra Fall Scale indicates No Risk (0-24 pts). Assessment: 19:00 General: Appears in no apparent distress. Behavior is calm, cooperative, appropriate ag7 for age. Pain: Complains of pain in right hand Pain does not radiate. Pain currently is 8 out of 10 on a pain scale. Quality of pain is described as burning, aching, Pain began suddenly, Is continuous. Neuro: Level of Consciousness is awake, alert, obeys commands, Oriented to person, Appropriate for age. Cardiovascular: Capillary refill < 3 seconds in right fingers Clubbing of nail beds is absent Patient's skin is warm and dry. Respiratory: Airway is patent Trachea midline Respiratory effort is even, unlabored, Respiratory pattern is regular, symmetrical. Musculoskeletal: Range of motion: limited in PIP of right middle finger. Injury Description: Laceration sustained to right hand is clean, 0.5 to 2.5 cm long, not bleeding. Vital Signs: 19:00 BP 116 / 68; Pulse 70; Resp 18 S; Pulse Ox 100% on R/A; Pain 8/10; ag7 ED Course: 18:39 Patient arrived in ED. as 18:42 Gracie Sevrin FNP is [facility] 18:42 Bam Yadav MD is Attending Physician. [facility] 18:42 Jael Acosta, RN is Primary Nurse. ld1 18:48 Triage completed. iw 18:49 Arm band placed on. iw 19:11 Viki Pena, BRISA is Primary Nurse. ag7 20:04 Patient has correct armband on for positive identification. Bed in low position. Call ag7 light in reach. Side rails up X 1. 20:04 Assist provider with laceration repair Set up tray. ag7 20:06 Patient did not have IV access during this emergency room visit. ag7 Administered Medications: 20:00 Drug: Tetanus-Diphtheria Toxoid Adult 0.5 ml {Concession Cashier: Pinstant Karma. Exp: ag7 12/13/2023. Lot #: [id number]. } Route: IM; Site: right deltoid; 20:06 Follow up: Response: No adverse reaction; Medication administered at discharge. 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 [facility] 19:39 Discharge ordered by . [email or web address] 20:05 Discharged to home ambulatory. ag7 20:05 Condition: stable 20:05 Discharge instructions given to patient, Instructed on discharge instructions, follow up and referral plans. medication usage, Demonstrated understanding of instructions, follow-up care, medications, Cash Applications Manager #[id number] Red 20:07 Patient left the ED. ag7 Signatures: Alesia Valerio Irene, RN RN iw Jael Acosta RN RN ld1 Viki Pena RN RN 7 Gracie Servin FNP MANAGER FIELD [facility]
[2022-02-09] MEDS ORDERED: LIDOCAINE 1% 20 ML MDV ONE (19:23)
[2022-02-09] MEDS ORDERED: TETANUS & DIPHTHERIA TOX,ADULT 0.5 ML VIAL ONE (19:51)
[2022-02-09 22:53] VITALS: BP 116/68; O2SAT 100
== END 2022-02-09 20:07 | disposition home or self-care (01) ==
LOC: ER 18:37
PROC: 0JQJ0ZZ Repair Right Hand Subcutaneous Tissue and Fascia, Open Approach (ICD-10-PCS; principal; 2022-02-09)
DX: S61.411A Laceration without foreign body of right hand, initial encounter (principal); Z23 Encounter for immunization
CPT/HCPCS: 90471; 90714; 99283